=== PATIENT | male | born 1960 | race Caucasian/White ===

== ENCOUNTER → 2024-02-21 10:32 | Outpatient (REF) | payer BC, SELFPAY | LOC: MRI 3T 10:32 | PROVIDERS: ATTENDING PHYSICIAN Nurse Practitioner | DX: E78.2 Mixed hyperlipidemia (principal); R41.0 Disorientation, unspecified | CPT/HCPCS: 70553; A9575 ==

== ENCOUNTER 2024-10-23 06:21 | Day surgery (SDC) | payer BC, SELFPAY | END 2024-10-23 11:32 | disposition home or self-care (01) | LOC: GI 06:21 | PROVIDERS: ATTENDING PHYSICIAN Internal Medicine | DX: Z12.11 Encounter for screening for malignant neoplasm of colon (principal); K57.30 Diverticulosis of large intestine without perforation or abscess without bleeding; K64.8 Other hemorrhoids; D12.4 Benign neoplasm of descending colon; K63.5 Polyp of colon; Z86.0100 Personal history of colon polyps, unspecified | CPT/HCPCS: 45385; 45380; 88305 ==